=== PATIENT | female | born 1965 | race Caucasian/White ===

== ENCOUNTER 2018-04-09 10:41 | Emergency (ER) | payer SELFPAY ==
[~2018-04-09] VITALS: Ht 172.7 cm; Wt 74.8 kg
[2018-04-09] MEDS ORDERED: ARMOUR THYROID30 MG PO (10:59)
[2018-04-09] MEDS ORDERED: CITALOPRAM HBR40 MG PO (10:59)
[2018-04-09] MEDS ORDERED: OXYCODONE HCL5 MG PO (14:34)
== END 2018-04-09 15:06 | disposition home or self-care (01) ==
LOC: ED 10:41
PROC: 2W3RX1Z Immobilization of Left Lower Leg using Splint (ICD-10-PCS; principal; 2018-04-09)
DX: S82.142A Displaced bicondylar fracture of left tibia, initial encounter for closed fracture (principal); V29.9XXA Motorcycle rider (driver) (passenger) injured in unspecified traffic accident, initial encounter; Z79.899 Other long term (current) drug therapy
CPT/HCPCS: 29505; 73560; 73700; 96374; 96375; 99284; J1170; J2270; J2405